=== PATIENT | female | born 1975 | race African-American/Black ===

== ENCOUNTER 2018-04-14 18:25 | Emergency (ER) | payer OTHER ==
--- NOTE | 2018-04-14 18:29 | PDOC ---
Rapid Medical Evaluation Time Seen by Provider: 04/14/18 18:27 Medical Evaluation: 04/14/18 18:28 I have performed a brief in-person evaluation of this patient. The patient presents with a chief complaint of: lower back pain without radiculopathy x1 day hx of open heart surgery, VSD Pertinent physical exam findings:ambulates no gross deficits I have ordered the following:nothing The patient will proceed to the ED for further evaluation. Discharge Disposition - Diagnosis Back pain - Referrals - Patient Instructions - Post Discharge Activity
[2018-04-14 18:31] VITALS: BP 120/70; PULSE 72; TEMP 98.2; BMI 34.7
--- NOTE | 2018-04-14 18:39 | PDOC ---
History of Present Illness - General Chief Complaint: Back Pain Stated Complaint: BACK PAIN Time Seen by Provider: 04/14/18 18:27 History Source: Patient - History of Present Illness Occurred: reports: yesterday Severity: reports: moderate Pain Location: reports: back Past History - Past Medical History Allergies/Adverse Reactions: Allergies Allergy/AdvReac Type Severity Reaction Status Date / Time No Known Allergies Allergy Verified 04/14/18 18:29 Home Medications: Ambulatory Orders Acetaminophen [Tylenol -] 1,000 mg PO Q6H #30 tablet 04/14/18 Cyclobenzaprine HCl [Flexeril 10 mg] 10 mg PO TID PRN #9 tablet 04/14/18 COPD: No - Surgical History 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 No: Apparent Distress HEENT: positive: Normal Voice Neck: positive: Supple Respiratory/Chest: negative: Respiratory Distress Gastrointestinal/Abdominal: positive: Soft. negative: Tender Musculoskeletal: negative: CVA Tenderness, Vertebral Tenderness Integumentary: positive: Dry, Warm Neurologic: positive: Fully Oriented, Alert, Normal Mood/Affect, Motor Strength 5/5 Moderate Sedation - Procedure Monitoring Vital Signs: Procedure Monitoring Vital Signs Temperature 98.2 F 04/14/18 18:29 Pulse Rate 72 04/14/18 18:29 Respiratory Rate 18 04/14/18 18:29 Blood Pressure 120/70 04/14/18 18:29 O2 Sat by Pulse Oximetry (%) 98 04/14/18 18:29 Medical Decision Making - Medical Decision Making 04/14/18 18:39 42-year-old female, no sig hx, here w/ non-radiating L lower back pain that started at some point after heavy lifting at work yesterday. Pain sharp, constant and worse w/ movement. Taking motrin w/ no relief. Denies dysuria, n/v/ f/c See exam Back strain in setting of heavy lifting No red fags -dc w/ pain control -pmd f/u as needed *DC/Admit/Observation/Transfer Diagnosis at time of Disposition: Back pain Qualifiers: Back pain location: thoracic back pain Chronicity: acute Back pain laterality: left Qualified Code(s): M54.6 - Pain in thoracic spine - Discharge Dispostion Disposition: HOME Condition at time of disposition: Good - Prescriptions Prescriptions: Acetaminophen [Tylenol -] 1,000 mg PO Q6H #30 tablet Cyclobenzaprine HCl [Flexeril 10 mg] 10 mg PO TID PRN #9 tablet PRN Reason: Back Pain - Referrals - Patient Instructions Printed Discharge Instructions: DI for Back Strain or Sprain Additional Instructions: Take medications as directed If pain persists, please follow up with your PMD - Post Discharge Activity
[2018-04-14] MEDS ORDERED: KETOROLAC TROMETHAMINE 60 MG/2 ML VIAL IM ONE (19:00)
[2018-04-14] MEDS ORDERED: KETOROLAC TROMETHAMINE 60 MG/2 ML VIAL ONE (19:04)
== END 2018-04-14 19:18 | disposition home or self-care (01) ==
LOC: JERFT 18:25
PROC: 3E0233Z Introduction of Anti-inflammatory into Muscle, Percutaneous Approach (ICD-10-PCS; principal; 2018-04-14)
DX: S29.012A Strain of muscle and tendon of back wall of thorax, initial encounter (principal); X50.0XXA Overexertion from strenuous movement or load, initial encounter; X50.9XXA Other and unspecified overexertion or strenuous movements or postures, initial encounter; Y93.89 Activity, other specified; Y92.238 Other place in hospital as the place of occurrence of the external cause; Y99.0 Civilian activity done for income or pay
CPT/HCPCS: 99281-25

== ENCOUNTER 2018-12-24 20:14 | Emergency (ER) | payer OTHER ==
[2018-12-24 20:25] VITALS: BP 105/67; PULSE 73; TEMP 98.3; BMI 34.7
[2018-12-24] MEDS ORDERED: METHOCARBAMOL 750 MG TABLET PO ONE (20:45)
[2018-12-24] MEDS ORDERED: KETOROLAC TROMETHAMINE 60 MG/2 ML VIAL IM ONE (20:45)
[2018-12-24] MEDS ORDERED: KETOROLAC TROMETHAMINE 60 MG/2 ML VIAL ONE (20:48)
[2018-12-24] MEDS ORDERED: METHOCARBAMOL 500 MG TABLET ONE (20:49)
--- NOTE | 2018-12-24 20:55 | PDOC ---
History of Present Illness - General Chief Complaint: Pain, Acute Stated Complaint: NECK PAIN Time Seen by Provider: 12/24/18 20:28 History Source: Patient Exam Limitations: No Limitations Past History - Past Medical History Allergies/Adverse Reactions: Allergies Allergy/AdvReac Type Severity Reaction Status Date / Time No Known Allergies Allergy Verified 04/14/18 18:29 Home Medications: Ambulatory Orders Acetaminophen [Tylenol -] 1,000 mg PO Q6H #30 tablet 04/14/18 Cyclobenzaprine HCl [Flexeril 10 mg] 10 mg PO TID PRN #9 tablet 04/14/18 Methocarbamol [Robaxin -] 1,500 mg PO QID PRN #24 tablet 12/24/18 COPD: No - Surgical History 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 negative: Decreased range of motion, Tender midline Respiratory/Chest: positive: Lungs Clear, Normal Breath Sounds. negative: Respiratory Distress Cardiovascular: positive: Regular Rhythm, Regular Rate, S1, S2. negative: Murmur Extremity: positive: Normal Inspection, Normal Range of Motion Integumentary: negative: Swelling, Ecchymosis Neurologic: positive: Alert, Normal Mood/Affect, Motor Strength 5/5 Medical Decision Making - Medical Decision Making 43 y/o F with hx of hysterectomy presents with L sided neck/shoulder pain x 3 weeks, gradually worsening, worse with movement of neck. Went to urgent care yesterday and was prescribed muscle relaxers (unable to recall name), but did not take them as states they make her really drowsy. Has only been using Tylenol without much relief of pain. Denies trauma, heavy lifting. Unsure if pain developed from how she slept. Denies fever, URI sxs, sob, cp, abd pain, n/v , numbness/tingling/weakness of extremities. Neck pain - likely MSK in nature; no concern for radiculopathy, ACS Plan: Toradol, Robaxin 12/24/18 20:52 Discharge - Discharge Information Problems reviewed: Yes Clinical Impression/Diagnosis: Neck pain, musculoskeletal Condition: Stable Disposition: HOME - Admission No - Additional Discharge Information Prescriptions: Methocarbamol [Robaxin -] 1,500 mg PO QID PRN #24 tablet PRN Reason: Muscle Spasms Prescription Drug Monitoring Program (I-STOP) results: I-STOP not reviewed - Follow up/Referral - Patient Discharge Instructions Patient Printed Discharge Instructions: DI for Neck Pain Additional Instructions: Thank you for choosing [facility]. It was a pleasure taking care of you. You may take Motrin 600 mg every 6 hours by mouth as needed for mild to moderate pain. Take Motrin with food. Take Robaxin as needed for muscle spasms. This medication can make you drowsy Can also try warm compresses and epsom salt baths Follow-up with your doctor in 2 days Return to the Emergency Department if your symptoms worsen or persist, you have fever, shortness of breath, chest pain, weakness of extremities or other concerning symptoms. - Post Discharge Activity
== END 2018-12-24 21:05 | disposition home or self-care (01) ==
LOC: JERFT 20:14
PROC: 3E0233Z Introduction of Anti-inflammatory into Muscle, Percutaneous Approach (ICD-10-PCS; principal; 2018-12-24)
DX: M54.2 Cervicalgia (principal)
CPT/HCPCS: 99281-25

== ENCOUNTER 2021-08-16 14:58 | Emergency (ER) | payer OTHER ==
[2021-08-16 15:06] VITALS: BP 87/59; PULSE 76; TEMP 97.8; BMI 42.0
[2021-08-16] MEDS ORDERED: KETOROLAC TROMETHAMINE 30 MG/1 ML VIAL IM ONE (17:02)
[2021-08-16] MEDS ORDERED: KETOROLAC TROMETHAMINE 30 MG/1 ML VIAL ONE (17:04)
== END 2021-08-16 20:24 | disposition home or self-care (01) ==
LOC: JERFT 14:58
PROC: 3E023GC Introduction of Other Therapeutic Substance into Muscle, Percutaneous Approach (ICD-10-PCS; principal; 2021-08-16)
DX: M25.551 Pain in right hip (principal)
CPT/HCPCS: 73502-TC-RT-FY; 99284-25

== ENCOUNTER 2023-07-15 19:21 | Emergency (ER) | payer OTHER ==
[2023-07-15 19:26] VITALS: BP 119/77; PULSE 64; RESP 18; TEMP 98.1; BMI 25.4
[2023-07-15] MEDS ORDERED: METHOCARBAMOL 500 MG TABLET ONE (20:51)
[2023-07-15] MEDS ORDERED: LIDOCAINE 4% PATCH TP ONE (20:51)
[2023-07-15] MEDS: LIDOCAINE 4% PATCH TP ONE (20:55)
[2023-07-15] MEDS: METHOCARBAMOL 750 MG TABLET PO ONE (20:56)
[2023-07-15] MEDS ORDERED: LIDOCAINE PATCH REMOVAL MC SCH (22:00)
== END 2023-07-15 21:13 | disposition home or self-care (01) ==
LOC: JERFT 19:21
DX: M54.50 Low back pain, unspecified (principal); G89.29 Other chronic pain; M25.551 Pain in right hip
CPT/HCPCS: 99283-25